=== PATIENT | male | born 1995 | race African-American/Black ===

== ENCOUNTER 2017-07-12 12:14 | Emergency (ER) | payer MEDICAID, OTHER ==
[~2017-07-12 12:14] MED LIST: Z.0.NO CURRENT MEDS
[2017-07-12 12:28] VITALS: BP 155/72; PULSE 55; RESP 18; TEMP 98.5; O2SAT 99
--- NOTE | 2017-07-12 12:47 | PD ---
HPI Chief Complaint: GI Complaint Time Seen by Provider: 12:40 Travel History International Travel<30 days: No Contact w/Intl Traveler<30days: No Traveled to known affect area: No History of Present Illness HPI Patient 22-year-old male presents emergency department for evaluation of nausea vomiting diarrhea now becoming constipation. Patient states that the entire family has been sick intermittently and his child just got over. He states symptoms for the past 2 days, having some cramping abdominal sensations which are intermittent just before bowel movement. Context as above, not associated with any fevers chills chest pain shortness of breath or rash. PFSH Past Medical History Immunizations Current: Yes Social History Alcohol Use: No Tobacco Use: No Substance Use: Yes (REPORTS "EVERY NOW AND THEN" USINES MARIJUANA W/ LAST USE IN THIS MONTH.) Allergies-Medications (Allergen,Severity, Reaction): Coded Allergies: No Known Allergies (Verified Adverse Reaction, Unknown, 07/12/17) Reported Meds & Prescriptions Reported Meds & Active Scripts Active Bentyl (Dicyclomine HCl) 10 Mg Cap 10 Mg PO TID PRN Zofran (Ondansetron HCl) 4 Mg Tab 4 Mg PO Q6HR PRN Fleet Bisacodyl Enema (Bisacodyl) 10 Mg/37 Ml Enem 37 Ml RECTAL ONCE PRN Review of Systems Except as stated in HPI: all other systems reviewed are Neg Physical Exam Narrative GENERAL: Well-developed well-nourished no obvious distress SKIN: Focused skin assessment warm/dry. HEAD: Atraumatic. Normocephalic. EYES: Pupils equal and round. No scleral icterus. No injection or drainage. ENT: No nasal bleeding or discharge. Mucous membranes pink and moist. NECK: Trachea midline. No JVD. CARDIOVASCULAR: Regular rate and rhythm. No murmur appreciated. RESPIRATORY: No accessory muscle use. Clear to auscultation. Breath sounds equal bilaterally. GASTROINTESTINAL: Abdomen soft, non-tender, nondistended. Hepatic and splenic margins not palpable. MUSCULOSKELETAL: No obvious deformities. No clubbing. No cyanosis. No edema. NEUROLOGICAL: Awake and alert. No obvious cranial nerve deficits. Motor grossly within normal limits. Normal speech. PSYCHIATRIC: Appropriate mood and affect; insight and judgment normal. Data Data Last Documented VS Vital Signs Date Time Temp Pulse Resp B/P (MAP) Pulse Ox O2 Delivery O2 Flow Rate FiO2 07/12/17 15:11 100 07/12/17 12:28 98.5 55 18 155/72 (99) Orders Orders Abdomen, Upright Only (07/12/17 ) Ondansetron Odt (Zofran Odt) (07/12/17 13:00) Ed Discharge Order (07/12/17 14:17) MDM Medical Decision Making Medical Screen Exam Complete: Yes Emergency Medical Condition: Yes Differential Diagnosis Gastritis, gastroneuritis, significant dehydration unlikely, constipation, obstruction seems unlikely. Narrative Course Patient 22-year-old male presents emergency department for evaluation of nausea vomiting and constipation. He states all family has been sick with a stomach flu. He has a completely benign abdomen I do not think that he would benefit from laboratory workup or helical imaging. Vital signs are reassuring. He does have a KUB which shows significant stool but nonobstructive bowel gas pattern. Discussed with him need follow-up with primary care physician symptomatic management return to ED criteria. For this visit he is stable for discharge. Diagnosis Primary Impression: N&V (nausea and vomiting) Additional Impression: Abdominal cramping Med/Other Pt SpecificInfo: Prescription(s) given Scripts Dicyclomine (Bentyl) 10 Mg Cap 10 MG PO TID Y for ABDOMINAL CRAMPING, #20 CAP 0 Refills Prov: Gildardo Moscoso MD 07/12/17 Ondansetron (Zofran) 4 Mg Tab 4 MG PO Q6HR Y for NAUSEA OR VOMITING, #20 TAB 0 Refills Prov: Gildardo Moscoso MD 07/12/17 Bisacodyl Enema (Fleet Bisacodyl Enema) 10 Mg/37 Ml Enem 37 ML RECTAL ONCE Y for CONSTIPATION, #1 BOTTLE 0 Refills Prov: Gildardo Moscoso MD 07/12/17 Disposition: 01 DISCHARGE HOME Condition: Stable Gildardo Moscoso MD Jul 12, 2017 12:47
[2017-07-12] MEDS ORDERED: ONDANSETRON ODT 4 MG TAB PO ONE (13:00)
--- NOTE | 2017-07-12 14:01 | RADRPT ---
EXAM DATE/TIME: 07/12/2017 13:35 [facility] COMPARISON: No previous studies available for comparison. INDICATIONS : Patient complains of nausea, vomiting, abdominal pain, and diarrhea. MEDICAL HISTORY : None. SURGICAL HISTORY : None. ENCOUNTER: Initial ACUITY: 3 days PAIN SCORE: 10/10 LOCATION: Left and right lower quadrants. FINDINGS: A single erect view of the abdomen demonstrates the lower lungs to be clear. No evidence of free int raperitoneal gas. The visualized bowel loops are unremarkable. CONCLUSION: Normal examination. Roshan Tinajero MD on July 12, 2017 at 13:58 Board Certified Radiologist. This report was verified electronically.
[2017-07-12] MEDS ORDERED: FLEE10EN RECTAL (14:17)
[2017-07-12] MEDS ORDERED: DICY10 PO (14:17)
[2017-07-12] MEDS ORDERED: ZOFR4TAB PO (14:17)
== END 2017-07-12 15:11 | disposition home or self-care (01) ==
LOC: NEPD 12:14
DX: R11.2 Nausea with vomiting, unspecified (principal); R10.9 Unspecified abdominal pain
CPT/HCPCS: 74018; 99283